=== PATIENT | female | born 1980 | race Caucasian/White ===

== ENCOUNTER 2017-08-28 19:36 | Emergency (ER) | payer OTHER ==
[~2017-08-28] VITALS: Ht 165.1 cm; Wt 53.5 kg
== END 2017-08-28 23:48 | disposition home or self-care (01) ==
LOC: ER 19:36
DX: O21.0 Mild hyperemesis gravidarum (principal); O26.891 Other specified pregnancy related conditions, first trimester; R53.1 Weakness; Z34.81 Encounter for supervision of other normal pregnancy, first trimester

== ENCOUNTER 2017-09-02 11:54 | Inpatient (IN) | payer OTHER ==
[~2017-09-02] VITALS: Ht 165.1 cm; Wt 50.3 kg
== END 2017-09-04 10:50 | DRG 781 ==
LOC: OB/GYN 11:54
PROC: 4A1HXCZ Monitoring of Products of Conception, Cardiac Rate, External Approach (ICD-10-PCS; principal; 2017-09-02)
DX: O21.0 Mild hyperemesis gravidarum (principal); Z3A.08 8 weeks gestation of pregnancy

== ENCOUNTER 2018-03-13 10:51 | Outpatient (CLI) | payer OTHER | END 2018-03-13 12:25 | disposition home or self-care (01) | LOC: LAB 10:51 | DX: Z34.03 Encounter for supervision of normal first pregnancy, third trimester (principal) ==

== ENCOUNTER 2018-03-20 13:15 | Inpatient (IN) | payer OTHER ==
[~2018-03-20] VITALS: Ht 165.1 cm; Wt 72.6 kg
== END 2018-04-06 10:50 | DRG 775 ==
LOC: LDR 04-04 05:30 → OB/GYN 04-04 13:40 → LDR 04-12 13:15
PROC: 0KQM0ZZ Repair Perineum Muscle, Open Approach (ICD-10-PCS; principal; 2018-04-04)
PROC: 10E0XZZ Delivery of Products of Conception, External Approach (ICD-10-PCS; 2018-04-04)
PROC: 4A1HXCZ Monitoring of Products of Conception, Cardiac Rate, External Approach (ICD-10-PCS; 2018-04-04)
DX: O70.1 Second degree perineal laceration during delivery (principal); Z37.0 Single live birth; Z3A.38 38 weeks gestation of pregnancy